=== PATIENT | male | born 1955 | race Caucasian/White ===

== ENCOUNTER 2021-05-30 14:27 | Emergency (ER) | payer BC, MEDICARE ==
[~2021-05-30] VITALS: Ht 190.5 cm; Wt 113.4 kg
[2021-05-30] MEDS ORDERED: CASIRIVIMAB/IMDEVIMAB 10 ML in SODIUM CHLORIDE 0.9% 100 ML IV ONE (14:30)
[2021-05-30 15:38] VITALS: BP 128/78
== END 2021-05-30 15:38 | disposition home or self-care (01) ==
LOC: ER 14:32
DX: U07.1 COVID-19 (principal); R05.9 Cough, unspecified; I48.91 Unspecified atrial fibrillation
CPT/HCPCS: 99283; J7050